=== PATIENT | male | born 1960 | race Caucasian/White ===

== ENCOUNTER 2024-02-21 14:19 | Outpatient (CLI) | payer MEDICARE, SELFPAY ==
--- NOTE | ~2024-02-21 | XR_ITS ---
AP view of the pelvis and AP and lateral views of the bilateral hips Clinical history: Pain Findings: No acute fracture or dislocation is seen. Osseous alignment is anatomic. Bilateral hip arth roplasties are present. There is degenerative change of the SI joints. Soft tissues are unremarkable. Impression: No acute abnormality. Bilateral hip arthroplasties. 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 Reviewed, dictated and finalized at location . Impression: No acute abnormality. Bilateral hip arthroplasties. 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
== END 2024-02-21 14:20 | disposition home or self-care (01) ==
PROVIDERS: PCP Family Medicine; Visit Provider Orthopaedic Surgery
DX: M46.1 Sacroiliitis, not elsewhere classified (principal); Z96.643 Presence of artificial hip joint, bilateral
CPT/HCPCS: 73521